=== PATIENT | female | born 1960 | race Caucasian/White ===

== ENCOUNTER → 2023-08-05 | Outpatient (CLI) | payer BC ==
[2023-08-05 16:03] LABS: Partial Thromboplastin Time 25.5 sec (22.0-30.0); Prothrombin Time 10.6 sec (10.0-12.5)
[2023-08-05 19:00] LABS: HCT 41.3 % (37.2-46.3); HGB 13.8 g/dL (12.0-15.0); MCH 28.8 pg (27.0-32.0); MCHC 33.4 g/dL (32.0-37.0); Mean Platelet Volume 11.9 FL (9.5-12.2); NRBC Per 100 WBC 0 X 10*3/uL (0.00-0.01); Platelet Count 287 X 10*3/uL (140-440); RDW 12.9 % (11.5-14.5); WBC 7.79 X 10*3/uL (4.50-10.00)
[2023-08-05 20:17] LABS: ALT 34 U/L (8-44); AST 26 U/L (13-35); Albumin 4.6 g/dL (3.8-4.9); Alkaline Phosphatase 72 U/L (41-126); Blood Urea Nitrogen 14.8 mg/dL (9.0-27.0); Calcium 10.3 mg/dL (8.7-10.3); Carbon Dioxide 25.9 mmol/L (21.6-31.8); Chloride 103 mmol/L (96-109); Globulin 2.7 g/dL (1.6-3.3); Glucose 95 mg/dL (70-110); Potassium 3.8 mmol/L (3.5-5.5); Sodium 141 mmol/L (135-145); Total Bilirubin 0.9 mg/dL (0.3-1.2); Total Protein 7.3 g/dL (6.2-8.2)
--- NOTE | 2023-08-05 22:35 | CT ---
EXAMINATION TYPE: CT shoulder RT wo con CT DLP: 555 mGycm, Automated exposure control for dose reduction was used. DATE OF EXAM: 08/05/2023 3:31 PM COMPARISON: None CLINICAL INDICATION:Female, 62 years old with history of M25.511 PAIN IN RIGHT SHOULDER; PHH, Chronic right shoulder pain TECHNIQUE: Axial images were obtained of the CT shoulder RT wo con, Additional coronal and sagittal r eformatted images and soft tissue and bone window were obtained for review. 3-D reconstruction was cr eated on a separate workstation. Contrast used: mL of , (None if empty) Oral contrast used: (None if empty) FINDINGS: Severe end-stage degeneration changes of the right shoulder with [id number] articulation with subchondral sclerosis, subchondral cystic change and bony deformity to the glenoid and humerus. Multiple calcified joint bodies are felt to be present as well as a degenerative labrum.. Mild degene ration changes of the acromioclavicular joint. No evidence of fracture. Multilevel degeneration changes of the spine. Right lower lobe pulmonary nodule measuring 4 mm series 3 image 246. Right lower lobe pulmonary nodul e measuring 6 mm series 3 image 210. Mild centrilobular emphysema changes are seen throughout the freida gs. Minor fissure intrafissural lymph node series 3 image 189 IMPRESSION: 1. 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 2. Few scattered pulmonary nodules. Follow-up imaging in one year recommended to ensure stability. F ollow up recommendations for incidental pulmonary nodules, if there are any, are per [employer] or [employer].
== END | disposition home or self-care (01) ==
LOC: LABWHC1 14:16
PROVIDERS: ATTEND Orthopaedic Surgery Hand Surgery
DX: Z01.818 Encounter for other preprocedural examination (principal); M19.011 Primary osteoarthritis, right shoulder; R91.8 Other nonspecific abnormal finding of lung field; Z22.322 Carrier or suspected carrier of Methicillin resistant Staphylococcus aureus
CPT/HCPCS: 36415; 80053; 85027; 85610; 85730; 87070; 93005